=== PATIENT | male | born 1940 | race Caucasian/White ===

== ENCOUNTER 2017-02-01 15:46 | Outpatient (CLI) | payer MEDICARE, BC ==
[2017-02-01 16:20] LABS: Hematocrit 47.7 % (42.0-52.0); Mean Platelet Volume 7.2 fL (7.4-10.4); Red Blood Cell (RBC) Count 4.91 mill/uL (4.70-6.10); White Blood Cell (WBC) Count 26.5 thou/uL (4.8-10.8)
[2017-02-01 16:24] LABS: PTT 26.7 SEC (22.9-36.1); Prothrombin Time 14.2 SEC (12.0-14.7)
[2017-02-01 16:40] LABS: ALT (SGPT) 26 U/L (8-55); AST (SGOT) 16 U/L (5-34); Alkaline Phosphatase 149 U/L (40-150); Anion Gap 11 mmol/L (10-20); BUN (Urea Nitrogen) 15 mg/dL (8.4-25.7); Bilirubin, Total 0.9 mg/dL (0.2-1.2); Calc. Creatinine Clearance 0 mL/min (70-130); Calcium 9.2 mg/dL (7.8-10.44); Carbon Dioxide 28 mmol/L (23-31); Chloride 106 mmol/L (98-107); Estimated GFR-MDRD 55; Globulin 2.1 g/dL (2.4-3.5); Protein, Total 6.3 g/dL (5.8-8.1)
== END 2017-02-01 15:47 | disposition home or self-care (01) ==
LOC: LABBT 15:46
PROVIDERS: ATTEND Internal Medicine Cardiovascular Disease
DX: Z01.818 Encounter for other preprocedural examination (principal); I25.119 Atherosclerotic heart disease of native coronary artery with unspecified angina pectoris
CPT/HCPCS: 80053; 85027; 85610; 85730; 93005; 93010

== ENCOUNTER 2017-02-10 07:07 | Day surgery (SDC) | payer MEDICARE, BC ==
[2017-02-01 16:13] VITALS: BMI 29.4
[2017-02-10] MEDS ORDERED: Heparin 1000 UNIT/NS 500ML(OR) 1,000 ML ONE (07:26)
[2017-02-10] MEDS ORDERED: Fentanyl 100 MCG/2 ML VIAL ONE (07:57)
[2017-02-10] MEDS ORDERED: Midazolam HCl 2 mg/2 ml Vial ONE (08:13)
[2017-02-10] MEDS ORDERED: Heparin 10,000 UNITS/1 ML VIAL ONE (08:32)
[2017-02-10] MEDS ORDERED: Nitroglycerin 100MG/250ML BOT 250 ML ONE (08:32)
[2017-02-10] MEDS ORDERED: Verapamil 5 MG/2 ML VIAL ONE (08:32)
[2017-02-10] MEDS ORDERED: Iopamidol 370 76% 100 ML VIAL ONE (11:15)
== END 2017-02-10 13:20 | disposition home or self-care (01) ==
LOC: CCL 07:07
PROVIDERS: ATTEND Internal Medicine Cardiovascular Disease
DX: I25.119 Atherosclerotic heart disease of native coronary artery with unspecified angina pectoris (principal); E78.5 Hyperlipidemia, unspecified; K21.9 Gastro-esophageal reflux disease without esophagitis; I25.2 Old myocardial infarction; Z88.8 Allergy status to other drugs, medicaments and biological substances; Z90.79 Acquired absence of other genital organ(s); Z85.46 Personal history of malignant neoplasm of prostate
CPT/HCPCS: 93458; 93798; C1769; 99152; J1644; J2250; J3010

== ENCOUNTER 2017-02-15 10:19 | Outpatient (CLI) | payer MEDICARE, BC ==
--- NOTE | 2017-02-15 12:10 | CT ---
CT CHEST WITH CONTRAST: HISTORY: Chest pain. COMPARISON: CT chest dated 07/17/2013. TECHNIQUE: Multiple axial tomograms obtained through the chest with IV enhancement. FINDINGS: The lungs show some hazy ground glass opacity in both lung bases posteriorly with some bibasilar stra nding. These findings appear stable when compared to the CT of 07/17/2013 and represent chronic pare nchymal change. The mid and upper lung quintana are clear. No effusion. No evidence of acute infiltr ate. The mediastinum is unremarkable. No adenopathy or mass seen. The thoracic aorta is unremarkable. I mages through the upper abdomen appear unremarkable. There is a focal area of sclerosis in a lower t horacic vertebra, which is stable from prior exams and is consistent with a benign bone island. IMPRESSION: No evidence of acute process. There are chronic lung parenchymal changes in the lung bases, which we re present on the prior exam of 2013. POS: [facility]
[2017-02-15] MEDS ORDERED: Iopamidol 370 76% 100 ML VIAL ONE (13:52)
== END 2017-02-15 10:20 | disposition home or self-care (01) ==
LOC: CT 10:19
PROVIDERS: ATTEND Internal Medicine Cardiovascular Disease
DX: R07.89 Other chest pain (principal); R91.8 Other nonspecific abnormal finding of lung field
CPT/HCPCS: 71260

== ENCOUNTER 2017-12-28 11:11 | Observation (INO) | payer MEDICARE, BC ==
[2017-12-28] MEDS ORDERED: Nitroglycerin 2% Ointment 1 INCH/1 GM Packet ONE (11:49)
[2017-12-28 12:06] LABS: ALT (SGPT) 23 U/L (8-55); AST (SGOT) 20 U/L (5-34); Albumin 4.3 g/dL (3.4-4.8); Alkaline Phosphatase 148 U/L (40-150); Anion Gap 10 mmol/L (10-20); BUN (Urea Nitrogen) 11 mg/dL (8.4-25.7); Bilirubin, Total 1.2 mg/dL (0.2-1.2); CK (CPK) 166 U/L (30-200); Calc. Creatinine Clearance 0 mL/min (70-130); Calcium 9.3 mg/dL (7.8-10.44); Carbon Dioxide 28 mmol/L (23-31); Chloride 105 mmol/L (98-107); Estimated GFR-MDRD 49; Globulin 2.4 g/dL (2.4-3.5); Glucose 98 mg/dL (83-110); Lipase 13 U/L (8-78); Potassium 4.7 mmol/L (3.5-5.1); Protein, Total 6.7 g/dL (5.8-8.1); Sodium 138 mmol/L (136-145)
[2017-12-28 12:08] LABS: CKMB 1.1 ng/mL (0-6.6); Troponin I Less than 0.010 ng/mL (< 0.028)
[2017-12-28 12:10] LABS: Band 1 % (5-11); Eosinophils 1 % (0-10); Hemoglobin 16.7 g/dL (14.0-18.0); Lymphocytes 72 % (21-51); MDiff Complete? YES; Mean Corpuscular HGB CONC 32.5 g/dL (32.0-36.0); Mean Corpuscular Hemoglobin 30.9 pg (27.0-31.0); Mean Corpuscular Volume 95.2 fL (78.0-98.0); Mean Platelet Volume 7.6 fL (7.4-10.4); Monocytes 3 % (0-10); Neutrophil 18 % (42-75); PLT Morphology Comment Appears Adequate; Platelet Count 160 thou/uL (130-400); RBC Distribution Width 11.8 % (11.5-14.5); RBC Morphology Normal; Reactive Lymphocytes 5 % (0-10); Red Blood Cell (RBC) Count 5.41 mill/uL (4.70-6.10); White Blood Cell (WBC) Count 35.9 thou/uL (4.8-10.8)
--- NOTE | 2017-12-28 13:48 | RAD ---
CHEST ONE VIEW: History: Chest pain Comparison: 05-10-17 FINDINGS: Lungs are mildly hypoinflated. No focal confluent infiltrate. No pneumothorax or effusion. No acute o sseous abnormality. Cardiac silhouette and mediastinal contours are similar. IMPRESSION: No acute intrathoracic abnormality. POS: OFF
[2017-12-28 15:14] LABS: Troponin I Less than 0.010 ng/mL (< 0.028)
[2017-12-28] MEDS ORDERED: Ondansetron ODT 4 MG TAB SL PRN (17:30)
[2017-12-28] MEDS ORDERED: Ondansetron PF 4 MG/2 ML Vial IVP PRN (17:30)
[2017-12-28 18:18] VITALS: BMI 29.9
[2017-12-28 18:48] LABS: Troponin I Less than 0.010 ng/mL (< 0.028)
[2017-12-28] MEDS: Metoprolol Tartrate 25 MG TAB PO SCH (20:58)
[2017-12-28] MEDS: TICAGRELOR 90 MG TABLET PO SCH (20:58)
[2017-12-28] MEDS ORDERED: Atorvastatin Calcium 40 MG TAB PO SCH (21:00)
--- NOTE | 2017-12-29 03:48 | HP ---
DATE OF ADMISSION: 12/28/2017 PRIMARY CARE PHYSICIAN: Dr. Robby Brown. CHIEF COMPLAINT: Chest pain. HISTORY OF PRESENT ILLNESS: This is a 77-year-old male patient of Dr. Robby Brown, who c madiosn to the ER today with complaint of chest pain that he said is difficult to describe, it is subster nal, but radiates towards his left axilla and at times his left hand is numb. He has had the pain of f and on for maybe 5 minutes to, at the most twenty minutes, several times over the last year. Today , he notes that the pain started yesterday and has been more consistent and he has never had the pain last this long. He says the location and the sensation that he gets from this pain is essentially t he same as what he had last year when he ended up getting coronary stents placed. Major difference i s that he has not had any diaphoresis with this episode, although he did have that and had significan t diaphoresis last year. He denies any nausea, any vomiting. Denies any changes in bowel habits. N o cough. PAST MEDICAL HISTORY: Positive for remote history of prostate cancer, remote history of PE. He has coronary artery disease, had a stent placed two different times. He also has CLL. PAST SURGICAL HISTORY: Tonsillectomy, adenoidectomy as a child. He had a cholecystectomy. He has h ad a TURP. He had a prostatectomy in 2012 and bladder reconstruction in 2012. He had coronary stent s placed in 2003 and then he had more stents placed in 2017 after acute coronary syndrome. FAMILY HISTORY: Father had heart disease. 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 He is . No toxic habits. Has several children, one of his grandchildren is here today with him . HOME MEDICATIONS: Include aspirin 325 mg daily, Brilinta 90 mg twice a day, Nexium 40 mg at night, m etoprolol 12.5 mg twice a day and lisinopril 2.5 mg daily, and Lipitor 80 mg daily at night. ALLERGIES: He has no known drug allergies. REVIEW OF SYSTEMS: He denies any headache or visual changes, no troubles chewing or swallowing. Den ies any fever or chills. Denies any cough or hemoptysis. He has had the chest pain, but it is diffi cult to describe as per HPI. Denies any abdominal pain or nausea. No changes in bowel or bladder corral bits. Denies any constipation or diarrhea. Denies any melena or bright red blood per rectum or latasha tochezia. Denies any dysuria, pyuria, or hematuria. Denies any paresis or paresthesias anywhere, bu t his left hand at times. also denies any suicidal or homicidal ideations. No auditory or visual corral llucinations. PHYSICAL EXAMINATION: VITAL SIGNS: Afebrile, 97.6, pulse is 56, respirations 20, satting 95% on room air, BP is 125/67. GENERAL: He is lying in bed comfortable, conversive. Family is in the room, his , one of his da ughters and his granddaughter has a good sense of humor. HEENT: He has got normocephalic, atraumatic cranium. Pupils are equal, round, and reactive to light and accommodation. Extraocular movements are intact. Mucous membranes are moist. Sclerae is anict alejandro. NECK: Supple, no JVD, no bruits, no thyromegaly, no lymphadenopathy. LUNGS: Clear to auscultation bilaterally, no rales, rhonchi or wheezes. HEART: S1, S2, with no rubs, murmurs, or gallops. ABDOMEN: Soft, nontender, nondistended, no palpable masses, no hepatosplenomegaly. Bowel sounds are hypoactive. GENITOURINARY: Exams deferred. EXTREMITIES: Showed good palpable pulses in all four extremities. No cyanosis, clubbing, or edema. NEUROLOGIC: Grossly intact. Cranial nerves II-XII are equal and symmetrical. No sensory or motor d eficits. LABORATORY AND X-RAY FINDINGS: White count is 35,900 which is standard for him. Hemoglobin 16.7, he matocrit 51.5, neutrophils of 18, bands at 1, lymphocytes elevated at 72, that is likely the standard for him. Chemistries: Sodium 138, potassium 4.7, chloride 105, bicarb 28, BUN is 11, creatinine is minimally elevated at 1.4 with estimated GFR of 49. Glucose 98, AST is 20, ALT is 23, lipase of 13. His creatinine kinase is 166. His CK-MB is 1.2. His troponins are undetectable. EKG was unremark able. Chest x-ray was also done in the ER is unremarkable. ASSESSMENT: Chest pain with a known history of coronary artery disease. PLAN: To observe overnight and if everything comes up normal, should be able to go home tomorrow. I have already discussed the case and was signed with Dr. Agarwal, who is his metal stamper and he is aw are, and he agrees with that plan. Dr. Brown will assume care in the morning.
[2017-12-29] MEDS ORDERED: Aspirin 325 mg Enteric Coated Tablet PO SCH (09:00)
[2017-12-29] MEDS: TICAGRELOR 90 MG TABLET PO SCH (09:12)
[2017-12-29] MEDS: Metoprolol Tartrate 25 MG TAB PO SCH (09:12)
[2017-12-29 11:31] VITALS: BP 126/68; TEMP 98.2
--- NOTE | 2018-01-01 09:11 | DIS ---
DATE OF SERVICE: 12/29/2017 SUBJECTIVE: Mr. Talley was admitted yesterday with chest pain to his left upper chest. All cardiac e nzymes studies so far have been normal and negative. He is not experiencing any further chest pain o r shortness of breath. PHYSICAL EXAMINATION: VITAL SIGNS: BP 126/68, temperature 98.2, O2 sats 94% on room air. LUNGS: Clear. HEART: Reveals no murmur. LABORATORY DATA: Hemoglobin 16.7, hematocrit 51.5. Chemistry is completely within normal limits. C hest x-ray is clear. Patient was observed overnight. No further chest pain. He wishes to be discharged home. PLAN: The plan is to discharge him home. He will follow up with me next week. Further followup wit h Cardiology later in the week. DISCHARGE MEDICATIONS: Brilinta 90 mg b.i.d., omeprazole 40 mg at bedtime, Metoprolol 12.5 mg b.i.d. , atorvastatin 80 mg at bedtime, and aspirin 325 mg daily.
== END 2017-12-29 13:02 | disposition home or self-care (01) ==
LOC: ERS 11:11 → ERHOLD 13:55 → 2SW 18:01
PROVIDERS: ADMIT Family Medicine; ATTEND Family Medicine
DX: R07.9 Chest pain, unspecified (principal); R06.02 Shortness of breath; I25.10 Atherosclerotic heart disease of native coronary artery without angina pectoris; Z95.5 Presence of coronary angioplasty implant and graft; Z79.899 Other long term (current) drug therapy
CPT/HCPCS: 71045; 80053; 82550; 82553; 83690; 84484 ×2; 85025; 93005; 99285; G0378 ×2; 36415

== ENCOUNTER 2018-08-20 11:13 | Emergency (ER) | payer BC, MEDICARE, OTHER ==
--- NOTE | 2018-08-20 12:19 | RAD ---
Exam: XR Hip Rt 2-3 View HISTORY: Right hip pain after fall. COMPARISON: None FINDINGS: Minimal osteoarthritis involves the right hip. Degenerative changes are seen in the lower lumbar spin e. No acute fracture, dislocation, or other acute osseous abnormality is identified. Metallic densities overlie the region of the scrotum. IMPRESSION: No acute osseous abnormality is identified.
[2018-08-20 12:29] LABS: Hemoglobin 16.6 g/dL (14.0-18.0); Mean Corpuscular HGB CONC 33.1 g/dL (32.0-36.0); Mean Corpuscular Hemoglobin 31.7 pg (27.0-31.0); Mean Corpuscular Volume 95.7 fL (78.0-98.0); RBC Distribution Width 12.1 % (11.5-14.5); Red Blood Cell (RBC) Count 5.22 mill/uL (4.70-6.10); White Blood Cell (WBC) Count 53.8 thou/uL (4.8-10.8)
[2018-08-20 12:37] LABS: ALT (SGPT) 28 U/L (8-55); AST (SGOT) 16 U/L (5-34); Alkaline Phosphatase 126 U/L (40-150); Anion Gap 11 mmol/L (10-20); BUN (Urea Nitrogen) 15 mg/dL (8.4-25.7); Bilirubin, Total 1.2 mg/dL (0.2-1.2); Calc. Creatinine Clearance 0 mL/min (70-130); Calcium 8.9 mg/dL (7.8-10.44); Carbon Dioxide 24 mmol/L (23-31); Chloride 105 mmol/L (98-107); Estimated GFR-MDRD 69; Globulin 2.1 g/dL (2.4-3.5); Glucose 92 mg/dL (83-110); Potassium 4.1 mmol/L (3.5-5.1); Protein, Total 6.1 g/dL (5.8-8.1); Sodium 136 mmol/L (136-145)
[2018-08-20 12:49] LABS: Band 1 % (5-11); Lymphocytes 50 % (21-51); MDiff Complete? YES; Mean Platelet Volume 9.5 fL (7.4-10.4); Monocytes 5 % (0-10); Neutrophil 14 % (42-75); Ovalocytes SLIGHT = 2-5 cells (100X) (0-1/hpf); Platelet Count 80 thou/uL (130-400); Platelet Morphology Comment Appears Decreased; Polychromasia SLIGHT = 2-3 cells (100X) (0-2/hpf); Reactive Lymphocytes 30 % (0-10); Reflex for Review?? YES
--- NOTE | 2018-08-20 13:25 | RAD ---
RIGHT SHOULDER: 08/20/18 Three views. HISTORY: Shoulder injury and pain. Both AP views are obtained in internal rotation. Density is seen from the humeral head at the glenohumeral joint. Some of this may represent hypertrop hic change; however, fracture cannot be excluded on this exam that does not include external rotation . There is no dislocation. AC joint normally aligned. IMPRESSION: Possible hypertrophic change from the humerus at the glenohumeral joint; however, I cannot exclude fr acture. Externally rotated view is not obtained. Consider further evaluation with CT. POS: OFF
--- NOTE | 2018-08-20 13:27 | CT ---
CT CERVICAL SPINE WITH CORONAL AND SAGITTAL REFORMATIONS AND NO IV CONTRAST: HISTORY: Fall, neck pain FINDINGS: Multilevel degenerative changes are present. No fracture, subluxation or facet malalignment is identified. There is an old fracture of the spinous process of T1. No prevertebral soft tissue swelling is apparent. The visualized lung apices are unremarkable. IMPRESSION: No CT evidence for fracture or traumatic subluxation.
[2018-08-20] MEDS ORDERED: Morphine 4 MG/ML VIAL ONE (13:36)
--- NOTE | 2018-08-20 13:45 | CT ---
CT BRAIN NONCONTRAST: 08/20/18 HISTORY: 78-year-old male status post acute head trauma from fall, and posttraumatic headache. FINDINGS: There is no midline shift or any other mass effect. There is no evidence of acute intracranial hemor rhage, large cortical infarct, obstructive hydrocephalus, or extraaxial fluid collection. The calvar ium is intact. IMPRESSION: No acute intracranial findings. jn [] POS: [facility]
--- NOTE | 2018-08-20 13:47 | CT ---
CT CHEST WITH IV CONTRAST CT ABDOMEN WITH IV CONTRAST CT PELVIS WITH IV CONTRAST CORONAL AND SAGITTAL REFORMATTED FORMATIONS OF THE THORACIC LUMBAR SPINE: HISTORY: Injury, fall, chest pain, abdominal pain, back pain FINDINGS: No mediastinal hematoma or intimal flap is seen in the aorta to suggest transection. No pleural or pe ricardial effusions are seen. No pneumothoraces or pulmonary contusions are identified. There is a 6 mm nodule in the posterior aspect of the right upper lobe. Dependent changes are seen in the lung b ases. The liver, spleen, pancreas, adrenal glands and kidneys appear intact. The patient is post cholecyste ctomy. An indeterminate 18 mm left adrenal nodule is present. There are cysts in the left kidney. No free air or free fluid is seen in the abdomen or pelvis. No fracture or subluxation is seen in the thoracolumbar spine. There are small sclerotic foci likely bone islands involving the T9 and L5 vertebral bodies and the left posterior acetabular column. Heterogeneous sclerotic change is seen in the right iliac bone. A penile prostheses is seen with its pump in the right anterior pelvis. IMPRESSION: 1. No CT evidence of acute intrathoracic or solid organ injury. 2. Indeterminate left adrenal nodule. Dedicated CT scan of the abdomen with and without IV contrast s hould be performed using the adrenal protocol. 3. A 6 mm right lung nodule should be followed up with CT scan in 12 months. 4. Bony findings should be evaluated with bone scan.
--- NOTE | 2018-08-25 17:06 | EKG ---
Test Reason : ER INDICATION Blood Pressure : / mmHG Vent. Rate : 053 BPM Atrial Rate : 053 BPM P-R Int : 128 ms QRS Dur : 086 ms QT Int : 416 ms P-R-T Axes : 025 -14 021 degrees QTc Int : 390 ms Sinus bradycardia Minimal voltage criteria for LVH, may be normal variant Cannot rule out Anterior infarct , age undetermined Abnormal ECG No change from 12/18/2017 Confirmed by SANGEETHA STATON DO ([id number]), market editor GUILLERMO COYNE ([id number]) on 08/25/2018 5:05:49 PM Referred By: Confirmed By:SANGEETHA STATON DO
== END 2018-08-20 15:10 | disposition home or self-care (01) ==
LOC: ERS 11:13
DX: S42.301A Unspecified fracture of shaft of humerus, right arm, initial encounter for closed fracture (principal); E27.9 Disorder of adrenal gland, unspecified; R91.1 Solitary pulmonary nodule; E78.5 Hyperlipidemia, unspecified; I25.10 Atherosclerotic heart disease of native coronary artery without angina pectoris; K21.9 Gastro-esophageal reflux disease without esophagitis; I25.2 Old myocardial infarction; Z79.899 Other long term (current) drug therapy; Z79.82 Long term (current) use of aspirin; W19.XXXA Unspecified fall, initial encounter
CPT/HCPCS: 70450; 71260; 72125; 74177; 80053; 84484; 85025; 85060; 93005; J2270

== ENCOUNTER 2019-02-07 14:06 | Outpatient (CLI) | payer MEDICARE, BC ==
--- NOTE | 2019-02-07 14:50 | ULT ---
EXAM: Bilateral lower extremity venous Doppler US HISTORY: bilateral lower extremity pain FINDINGS: Grayscale, color-flow, Doppler evaluation, spectral analysis of the bilateral lower extremities venou s structures is performed with 2-D imaging. The bilateral common femoral, superficial femoral, popliteal, posterior tibial, proximal greater saphenous and profunda femoral veins are imaged. There is normal luminal compressibility, flow, and augmentation in the visualized deep venous structu res of the bilateral lower extremities. IMPRESSION: No evidence of a deep vein thrombosis in either lower extremity.
== END 2019-02-07 14:07 | disposition home or self-care (01) ==
LOC: BICULT 14:06
PROVIDERS: ATTEND Family Medicine
DX: M79.604 Pain in right leg (principal); M79.605 Pain in left leg
CPT/HCPCS: 93970

== ENCOUNTER 2019-10-25 05:41 | Day surgery (SDC) | payer MEDICARE, BC, OTHER ==
[2019-10-22 13:17] VITALS: BMI 28.7
--- NOTE | 2019-10-24 13:33 | HP ---
HISTORY OF PRESENT ILLNESS: Mr. Talley is a very pleasant 79-year-old man, who presents today for roughly 9-month worth of severe bilateral lower extremity L4 patterns of pain that mostly remains proximal to his knees but when severe, radiates down to his feet. He had to resort using a cane secondary to this. He has seen several physicians including Pain Management who gave him epidural steroid injections with only limited relief for brief periods of time. He brings an MRI from [facility], which shows mild to moderate lateral recess stenosis at L3-[address] scan from [place] that reveals also some bilateral L4 stenosis in the foramina. PHYSICAL EXAMINATION: The patient is alert and oriented x3. Gait is severely antalgic and slowed depending upon cane. Cranial nerve function is normal. His strength in his bilateral lower extremities is actually quite good in all movements. He has recently seen Dr. Haney for evaluation with NCV, which he states is unremarkable. He is desperate to treat this potentially with surgery if at all possible. PAST MEDICAL HISTORY: Hypercholesterolemia, chronic pain syndrome, osteoarthritis, seasonal allergies, prostate cancer, hypertension, coronary artery disease, and kidney disease. SURGICAL HISTORY: Tonsillectomy, cholecystectomy, cardiac stents, prostatectomy, AICD placement. CURRENT MEDICATIONS: 1. Omeprazole. 2. Aspirin. 3. Metoprolol. 4. Atorvastatin. 5. Brilinta. ALLERGIES: NO KNOWN DRUG ALLERGIES. ASSESSMENT: Lumbar spinal stenosis, radiculopathy. PLAN: Dr. Barnhart met with the patient, reviewed imaging, advocated for bilateral L4 foraminotomy. He explained to the patient the risks, benefits, and alternatives to the procedure. The patient expressed understanding and elected to move forward with surgery as discussed. I do believe that the patient is mentally competent and capable of making medical decisions for himself. We will move forward with surgery as planned. Job ID: [id number]
[2019-10-25] MEDS ORDERED: Bupivacaine PF 0.5% 30 ML VIAL ONE (06:39)
[2019-10-25] MEDS ORDERED: Thrombin 5000 UNITS/5 ML VIAL ONE (06:39)
[2019-10-25] MEDS ORDERED: EPINEPHrine 1 MG/ML AMP ONE (06:39)
[2019-10-25] MEDS ORDERED: Fentanyl 100 MCG/2 ML VIAL ONE ×4 (06:58→09:52)
--- NOTE | 2019-10-25 08:58 | OP ---
DATE OF PROCEDURE: 10/25/2019 COLLECTIONS REPRESENTATIVE: Helder Pineda PA-C INDICATION: Pain. DIAGNOSIS: Bilateral L4 radiculopathies. PROCEDURES PERFORMED: Bilateral L4 foraminotomies, medial facetectomies. ANESTHESIA: General. DESCRIPTION OF PROCEDURE: The patient was brought into the operating room and placed under general anesthesia. He was flipped from the supine to prone position on the operating room table. A linear incision was planned at the L4 segment. After prepping and draping and after an appropriate preoperative pause, the incision was created. The soft tissues were swept away from midline. Self-retaining retractors were placed in the wound for optimal exposure. After confirming the appropriate level with C-arm fluoroscopy, high-speed cutting drill bit as well as 2, 3, and 4 mm Kerrisons were used to perform partial hemilaminectomies along the inferior aspect of L4 bilaterally. The laminectomies were extended laterally to encompass the medial aspect of the facet joint in order to expose the L4 foramen. Portions of the superior articulating facet of L5 were removed bilaterally, which were responsible for the bulk of the patient's foraminal stenosis. After completing the decompression, the wound was irrigated. Hemostasis was maintained throughout. The wound was then closed in anatomic layers, and a pressure dressing was applied. There were no known procedural complications. Job ID: [id number]
[2019-10-25] MEDS ORDERED: Tamsulosin HCl 0.4 MG CAP ONE (09:03)
[2019-10-25] MEDS ORDERED: Dexamethasone 20 MG/5 ML VIAL ONE (09:13)
[2019-10-25] MEDS ORDERED: Rocuronium Bromide 10 MG/ML (10ML VIAL) ONE (09:13)
[2019-10-25] MEDS ORDERED: Lidocaine 1% PF 5 ML VIAL ONE (09:13)
[2019-10-25] MEDS ORDERED: EPHEDRINE 25 MG/5 ML SYRINGE ONE (09:13)
[2019-10-25] MEDS ORDERED: Ondansetron PF 4 MG/2 ML Vial ONE (09:13)
[2019-10-25] MEDS ORDERED: Glycopyrrolate 0.2 MG/ML 5 ML SYRINGE ONE (09:13)
[2019-10-25] MEDS ORDERED: PROPOFOL 200 MG/20 ML VIAL ONE (09:13)
[2019-10-25 11:23] LABS: Anion Gap 12 mmol/L (10-20); BUN (Urea Nitrogen) 15 mg/dL (8.4-25.7); Calc. Creatinine Clearance 70 mL/min (70-130); Calcium 8.4 mg/dL (7.8-10.44); Carbon Dioxide 25 mmol/L (23-31); Chloride 106 mmol/L (98-107); Estimated GFR-MDRD 62; Glucose 116 mg/dL (83-110); Potassium 4.2 mmol/L (3.5-5.1); Sodium 139 mmol/L (136-145)
[2019-10-25 11:28] LABS: Hemoglobin 14.4 g/dL (14.0-18.0); Mean Corpuscular HGB CONC 32.7 g/dL (32.0-36.0); Mean Corpuscular Hemoglobin 32.1 pg (27.0-31.0); Mean Corpuscular Volume 98.1 fL (78.0-98.0); Mean Platelet Volume 9.4 fL (7.4-10.4); Platelet Count 66 thou/uL (130-400); RBC Distribution Width 11.6 % (11.5-14.5); Red Blood Cell (RBC) Count 4.47 mill/uL (4.70-6.10); White Blood Cell (WBC) Count 51.3 thou/uL (4.8-10.8)
[2019-10-25 11:30] LABS: Lymphocytes 83 % (21-51); MDiff Complete? YES; Monocytes 2 % (0-10); Neutrophil 15 % (42-75); Platelet Morphology Comment Appears Decreased; RBC Morphology Normal; Reflex for Review?? NO
--- NOTE | 2019-10-25 16:45 | EKG ---
Test Reason : PREOP Blood Pressure : / mmHG Vent. Rate : 056 BPM Atrial Rate : 056 BPM P-R Int : 148 ms QRS Dur : 088 ms QT Int : 426 ms P-R-T Axes : 068 023 047 degrees QTc Int : 411 ms Sinus bradycardia Otherwise normal ECG No previous ECGs available Confirmed by DR. Dimas LARIOS ([id number]) on 10/25/2019 4:45:17 PM Referred By: FLYNN Confirmed By:DR. Dimas LARIOS
== END 2019-10-25 11:40 | disposition home or self-care (01) ==
LOC: SDC 05:41
PROVIDERS: ATTEND Neurological Surgery
PROC: 01NB0ZZ Release Lumbar Nerve, Open Approach (ICD-10-PCS; principal; 2019-10-25)
DX: M48.061 Spinal stenosis, lumbar region without neurogenic claudication (principal); M54.16 Radiculopathy, lumbar region; E78.00 Pure hypercholesterolemia, unspecified; G89.4 Chronic pain syndrome; M19.90 Unspecified osteoarthritis, unspecified site; I25.10 Atherosclerotic heart disease of native coronary artery without angina pectoris; I10 Essential (primary) hypertension; Z79.82 Long term (current) use of aspirin; Z79.899 Other long term (current) drug therapy; Z88.5 Allergy status to narcotic agent; Z95.5 Presence of coronary angioplasty implant and graft; Z95.810 Presence of automatic (implantable) cardiac defibrillator
CPT/HCPCS: 36415; 76000; 80048; 85025; 93005; 93010; J0171; J0690; J1100; J2405; J2704; J3010; S0020

== ENCOUNTER 2019-12-17 11:06 | Outpatient (CLI) | payer MEDICARE, BC, OTHER ==
--- NOTE | 2019-12-17 13:12 | RAD ---
RIGHT HIP 2 VIEWS: Date: 12/17/2019 HISTORY: Hip pain. COMPARISON: 08/20/2018. FINDINGS: Mild degenerative change at the right hip. Joint narrowing and minimal spurring. No fracture or acute abnormality. Evidence of subchondral cystic changes along the superior aspects of the femoral head which is more p ronounced than on the prior study. No fracture or acute abnormality. IMPRESSION: Degenerative changes right hip as described. POS: ONES[facility]
== END 2019-12-17 11:07 | disposition home or self-care (01) ==
LOC: TBSIIMAG 11:06
PROVIDERS: ATTEND Neurological Surgery
DX: M25.551 Pain in right hip (principal); M16.11 Unilateral primary osteoarthritis, right hip

== ENCOUNTER 2020-03-11 04:03 | Observation (INO) | payer MEDICARE, BC, OTHER ==
[2020-03-11 05:02] LABS: ALT (SGPT) 15 U/L (8-55); AST (SGOT) 16 U/L (5-34); Albumin 4.3 g/dL (3.4-4.8); Alkaline Phosphatase 172 U/L (40-110); Anion Gap 13 mmol/L (10-20); BUN (Urea Nitrogen) 16 mg/dL (8.4-25.7); Bilirubin, Total 0.7 mg/dL (0.2-1.2); Calc. Creatinine Clearance 0 mL/min (70-130); Calcium 9.1 mg/dL (7.8-10.44); Carbon Dioxide 28 mmol/L (23-31); Chloride 106 mmol/L (98-107); Globulin 2.4 g/dL (2.4-3.5); Glucose 100 mg/dL (83-110); Potassium 4.4 mmol/L (3.5-5.1); Protein, Total 6.7 g/dL (5.8-8.1); Sodium 143 mmol/L (136-145)
[2020-03-11] MEDS ORDERED: Ketorolac Tromethamine 30 MG/ML VIAL ONE (05:06)
[2020-03-11 05:34] LABS: Mean Corpuscular HGB CONC 32.1 g/dL (32.0-36.0); Mean Corpuscular Hemoglobin 31.2 pg (27.0-31.0); Mean Corpuscular Volume 97.1 fL (78.0-98.0); Mean Platelet Volume 9.6 fL (7.4-10.4); Platelet Count 77 thou/uL (130-400); RBC Distribution Width 12.1 % (11.5-14.5); Red Blood Cell (RBC) Count 4.82 mill/uL (4.70-6.10); Reflex for Review?? YES; White Blood Cell (WBC) Count 85.2 thou/uL (4.8-10.8)
[2020-03-11 05:35] LABS: Band 3 % (5-11); Lymphocytes 18 % (21-51); MDiff Complete? YES; Monocytes 1 % (0-10); Neutrophil 10 % (42-75); Platelet Morphology Comment Appears Decreased; Reactive Lymphocytes 68 % (0-10)
[2020-03-11] MEDS ORDERED: Enoxaparin Sodium 30 MG/0.3 ML SYRINGE ONE (05:45)
[2020-03-11] MEDS ORDERED: Enoxaparin Sodium 60 MG/0.6 ML SYRINGE ONE (05:45)
--- NOTE | 2020-03-11 06:46 | PDOC.HHP ---
Hospitalist HPI - History of Present Illness Chest pain History of Present Illness: This is 79-year-old male patient with a history of [place] status post stent, PE, hyperlipidemia and CLL who presents with sudden onset chest pain about 2 hours prior to arrival to the ED. He was lying down in bed when he noted a sudden onset of chest pain felt bilateral but mainly in his left side. This was sharp yesterday nonradiating and worse with inspiration. Given that his had a previous [place] he thought he had an MIleading him to come to the ED for further evaluation. He denied any associated cough palpitations shortness of breath or recent leg pain. Of note he had surgery on his back about 2 months ago and has also had a pulmonary embolism after one of his surgeries many years ago. At presentation Vitals shows blood pressure of 127/65, pulse 64, respirate 15, oxygen saturation 96 on room air. His labs showed WBC of 35.2, platelets 77, hemoglobin 15.0, creatinine was 1.39 from a baseline of 1.14 about 4 months ago. Alkaline phosphatase was 172. Troponin was 0.01. CTA demonstrated mild patchy airspace disease or atelectasis within both upper lobes and lingula and also had positive pulmonary embolism bilaterally in his lower lobes. He was started on ketorolac and Lovenox. Hospitalist team consulted for admission. Hospitalist ROS - Review of Systems Constitutional: denies: fever, sweats, weakness, malaise Respiratory: denies: cough, shortness of breath, hemoptysis, SOB with excertion Cardiovascular: reports: chest pain. denies: palpitations, orthopnea, paroxysmal noc. dyspnea Gastrointestinal: reports: nausea. denies: vomiting, abdominal pain, diarrhea Genitourinary: denies: dysuria, frequency, incontinence, hematuria Neurological: denies: weakness, numbness, incoordination, change in speech All other systems reviewed; all pertinent +/- noted in HPI/Subj - Medication Medications: Medications: Can refer to ambulatory list. Allergies: Hydromorphone Hospitalist History - Past Medical History Other Medical History: CLL, [place], PE - Past Surgical History Other Surgical History: TURP, cholecystectomy, tonsillectomy - Family History Family History: reports: no pertinent history - Social History Smoking Status: Never smoker Drugs: reports: none Living Situation: With Family - Exam General Appearance: awake alert Eye: PERRL, anicteric sclera ENT: normocephalic atraumatic, no oropharyngeal lesions Neck: supple, symmetric, no JVD, no thyromegaly Heart: RRR, no murmur, no gallops, no rubs Respiratory: CTAB, no wheezes, no rales, no ronchi Gastrointestinal: soft, non-tender, non-distended, normal bowel sounds Extremities: no cyanosis, no clubbing, no edema Neurological: cranial nerve grossly intact, normal sensation to touch, no weakness Psychiatric: normal affect, normal behavior, A&O x 3 Hospitalist Results - Labs Result Diagrams: 03/11/20 04:16 03/11/20 04:16 Lab results: WBC 85.2 thou/uL (4.8-10.8) H* 03/11/20 04:16 Hgb 15.0 g/dL (14.0-18.0) 03/11/20 04:16 Hct 46.8 % (42.0-52.0) 03/11/20 04:16 MCV 97.1 fL (78.0-98.0) 03/11/20 04:16 Plt Count 77 thou/uL (130-400) L 03/11/20 04:16 Band Neuts % (Manual) 3 % (5-11) L 03/11/20 04:16 Sodium 143 mmol/L (136-145) 03/11/20 04:16 Potassium 4.4 mmol/L (3.5-5.1) 03/11/20 04:16 Chloride 106 mmol/L (98-107) 03/11/20 04:16 Carbon Dioxide 28 mmol/L (23-31) 03/11/20 04:16 BUN 16 mg/dL (8.4-25.7) 03/11/20 04:16 Creatinine 1.39 mg/dL (0.7-1.3) H 03/11/20 04:16 Glucose 100 mg/dL (83-110) 03/11/20 04:16 Calcium 9.1 mg/dL (7.8-10.44) 03/11/20 04:16 Total Bilirubin 0.7 mg/dL (0.2-1.2) 03/11/20 04:16 AST 16 U/L (5-34) 03/11/20 04:16 ALT 15 U/L (8-55) 03/11/20 04:16 Alkaline Phosphatase 172 U/L (40-110) H 03/11/20 04:16 Troponin I Less than 0.010 ng/mL (< 0.028) 03/11/20 04:16 Serum Total Protein 6.7 g/dL (5.8-8.1) 03/11/20 04:16 Albumin 4.3 g/dL (3.4-4.8) 03/11/20 04:16 Hospitalist H&P A/P - Plan Plan: This is a 79-year-old male patient with a history of [place], PE and CLL who presents with chest pain secondary to bilateral pulmonary embolism. Bilateral PE Risk factors including CLL, recent surgery, to rule out Covid. Started on Lovenoxwe will continue We will order echocardiogram to assess change in heart. Monitor on telemetry. Bilateral pulmonary infiltrates Patient is asymptomatic is unclear whether he has a pneumonia. Also concerns for Covidtest pending. We will monitor. CLL WBC at 85 Baseline typically in the 30s and 40s. To consider heme-onc consult later next Thrombocytopenia Platelets 77, from 66 4 months agopossibly related to CLL Unclear etiology of this. Given his low platelets we will have to monitor heparin use Consider changing to direct oral anticoagulants before discharge. VT prophylaxistherapeutic on Lovenox CODE STATUSto be determined
[2020-03-11 07:26] LABS: SARS-CoV-2 NAA Rapid Test Not Detected (NotDetected)
--- NOTE | 2020-03-11 08:22 | RAD ---
RADIOGRAPH CHEST 1 VIEW: DATE: 03/11/2020 HISTORY: 79-year-old male with chest pain FINDINGS: Limited study because of shallow inspiration. Minimal reticular nonspecific densities at left base. T here is no consolidation, pulmonary edema, or pneumothorax. The lateral costophrenic angles are not effaced. IMPRESSION: No consolidation
--- NOTE | 2020-03-11 08:28 | CT ---
PRELIMINARY REPORT/[facility]/EMERGENCY AFTER HOURS PROCEDURE: Receipt of this report by the clinical staff was confirmed with Eber Crews DO by Bethany Crook on Mar 11, 2020 05:38:00 [employer] DIST[employer]ION AND EMERGENCY CLERK. Addendum electronically signed by Kayley Crook on March 11, 2020 5:38:39 AM [employer] DIST[employer]ION AND EMERGENCY CLERK EXAM: CTA Chest with Intravenous Contrast CLINICAL HISTORY: 79-year-old male with past medical history of [place], PE, hyperlipidemia CLL presenting for chest pain that started 2 hours prior to arrival. Patient states that it is a sharp pain in the middle of his chest worse with inspiration. Patient states that he became diaphoretic and nauseou s and the pain slowly got worse over the next hour. TECHNIQUE: Axial CTA images of the chest with intravenous contrast. Three-dimensional MIP/volume rend ered reformations were performed. CONTRAST: With; 70ML ISOVUE 370 COMPARISON: None provided. FINDINGS: PULMONARY ARTERIES There is a pulmonary embolus within the left lower lobe segmental pulmonary artery extending to the subsegmental branches. Pulmonary emboli are also visualized within the right lower lobe subsegmental pulmonary arteries. AORTA There is mild aortic atherosclerosis, without aneurysmal dilatation. LUNGS There is mild patchy airspace disease or atelectasis within both lower lobes and lingula. PLEURAL SPACES There is no evidence of effusions or pneumothoraces. HEART AND MEDIASTINUM The main coronary artery is unremarkable. There is calcified coronary atheroscl erosis. LYMPH NODES No lymphadenopathy. BONES No focal osseous abnormality or acute fracture. CHEST WALL AND UPPER ABDOMEN Images through the upper abdomen are unremarkable. The chest wall is unr emarkable. IMPRESSION: 1. Positive for pulmonary embolism with pulmonary emboli within bilateral lower lobes. 2. Mild patchy airspace disease/atelectasis within both lower lobes and lingula. ELECTRONICALLY SIGNED BY: Josh Duckworth MD Mar 11, 2020 5:36:04 AM [employer] DIST[employer]ION AND EMERGENCY CLERK FINAL REPORT EMERGENT AFTER HOURS CT ANGIOGRAM THORAX WITH IV CONTRAST AND 3D RECONSTRUCTIONS: HISTORY: Chest pain. COMPARISON: 07/17/[address] thorax on 08/20/2018 IMPRESSION: 1. Pulmonary emboli involving bilateral lower lobe pulmonary arteries as well as left upper lobe pulm onary arteries. 2. Atherosclerotic vascular calcifications and plaque in the thoracic aorta. The thoracic aorta is no rmal in caliber without evidence of an aortic dissection. 3. Dense vascular calcifications are again seen in the coronary arteries. 4. Linear and patchy parenchymal densities within the lungs bilaterally felt to most likely be attrib utable to atelectasis. 5. No other interval change compared to prior studies. 6. Findings are in agreement with preliminary report by [facility]. Transcribed Date/Time: 03/11/2020 8:38 AM
--- NOTE | 2020-03-11 11:57 | PDOC.HOSPP ---
- Subjective Encounter Date: 03/11/20 Subjective: reports being sob with movement. - Objective Result Diagrams: 03/11/20 04:16 03/11/20 04:16 - Exam General Appearance: awake alert Eye: PERRL, anicteric sclera ENT: normocephalic atraumatic Neck: supple, symmetric Heart: RRR, no murmur Respiratory: CTAB, no wheezes Gastrointestinal: soft, non-tender, non-distended Extremities: no cyanosis, no clubbing Skin: normal turgor Hosp A/P (1) Pulmonary emboli Code(s): I26.99 - OTHER PULMONARY EMBOLISM WITHOUT ACUTE COR PULMONALE Status: Acute (2) CLL (chronic lymphocytic leukemia) Code(s): C91.10 - CHRONIC LYMPHOCYTIC LEUK OF B-CELL TYPE NOT ACHIEVE REMIS Status: Acute (3) Hypertension Code(s): I10 - ESSENTIAL (PRIMARY) HYPERTENSION Status: Acute (4) Thrombocytopenia Code(s): D69.6 - THROMBOCYTOPENIA, UNSPECIFIED Status: Acute - Plan This is a 79-year-old male patient with a history of [place], PE and CLL who presents with chest pain secondary to bilateral pulmonary embolism. Bilateral PE Risk factors including CLL, recent surgery, Covid ruled out. on Lovenoxwe will continue follow up echocardiogram to assess change in heart. Monitor on telemetry. will do venous doppler of bilateral LE. Bilateral pulmonary infiltrates Patient is asymptomatic is unclear whether he has a pneumonia. Covidtest negative We will monitor. CLL WBC at 85 Baseline typically in the 30s and 40s. heme-onc consulted for further input concerning anticoagulation. Thrombocytopenia Platelets 77, from 66 4 months agopossibly related to CLL Unclear etiology of this. Given his low platelets we will have to monitor heparin use Consider changing to direct oral anticoagulants before discharge. VT prophylaxistherapeutic on Lovenox CODE STATUSto be determined
[2020-03-11] MEDS ORDERED: Iopamidol-370 76% 500 ML 1 ML ONE (13:05)
--- NOTE | 2020-03-11 13:25 | ULT ---
BILATERAL LOWER EXTREMITY VENOUS DOPPLER ULTRASOUND: Date: 03/11/2020 HISTORY: Pulmonary embolism. TECHNIQUE: Lopez scale ultrasound with color flow and spectral Doppler imaging of the deep venous systems of the lower extremities was performed bilaterally. FINDINGS: There is absence of flow and compressibility due to intraluminal thrombus involving both the right an d left mid posterior tibial veins. The remainder of the deep veins of the lower extremities are other kuhn patent and compressible. IMPRESSION: Bilateral posterior tibial vein thrombosis. POS: AH
[2020-03-11 15:58] VITALS: BMI 29.3
--- NOTE | 2020-03-11 17:08 | CON ---
DATE OF CONSULTATION: REASON FOR CONSULTATION: CLL. HISTORY OF PRESENT ILLNESS: Mr. Talley is a pleasant 79-year-old gentleman with Kramer stage 0 CLL, who is being followed by Dr. Corona. He had surgery approximately 2 months ago and began having intermittent twinges (twinges in his chest) over the last several weeks. Early this morning, he began to have unrelenting chest pain and presented to the emergency room for evaluation. He underwent a chest and thorax CT angio, which showed bilateral pulmonary embolism. He then had a venogram, which showed bilateral DVTs in the posterior tibial veins. He was started on therapeutic Lovenox and admitted for anticoagulation. On CBC this morning, his white count was 85,000 and his platelet counts were 77,000. He was diagnosed with CLL in 2019. His white count has progressed over the last year. At diagnosis, it was 38,700, when last seen by Dr. Corona, it was 84,500. His platelets have slowly began to drop as well. In February when he was last seen, it was 92,000. He has required no treatment as he has had no symptoms. He is currently resting comfortably with no complaints. PAST MEDICAL HISTORY: 1. CLL. 2. Myocardial infarction. 3. Coronary artery disease. 4. Hyperlipidemia. 5. Arthritis. 6. History of prostate cancer status post robotic prostatectomy in 2014. 7. GERD. 8. History of pulmonary emboli after prior surgery. PAST SURGICAL HISTORY: 1. Coronary stents. 2. Cholecystectomy. 3. TURP. 4. Cystoscopy. 5. Prostatectomy. 6. Bladder reconstruction. 7. Hernia repair. 8. Urinary sphincter implantation. 9. Back surgery. ALLERGIES: TO HYDROMORPHONE. HOME MEDICATIONS: 1. Aspirin. 2. Atorvastatin. 3. Metoprolol. 4. Prilosec. FAMILY HISTORY: Father had prostate cancer. SOCIAL HISTORY: , has 2 children. No alcohol, tobacco, or illicit drug use. REVIEW OF SYSTEMS: Positive for occasional chest discomfort with respirations and chronic back pain. Otherwise negative. PHYSICAL EXAMINATION: VITAL SIGNS: Temperature is 97.7, pulse is 65, respiratory rate 16, BP is 136/66, and he is 95% on room air. GENERAL: This is a well-developed, well-nourished male, in no acute distress. HEENT: Normocephalic and atraumatic. Pupils equal and reactive to light. NECK: Supple. CV: Regular rate and rhythm. LUNGS: Clear. ABDOMEN: Soft. EXTREMITIES: There is no clubbing or cyanosis. NEUROLOGIC: Nonfocal. PERTINENT LABORATORY DATA AND X-RAYS: WBCs are 85,200, hemoglobin 15, hematocrit 46.8, and platelet count 77,000. He has 10% neutrophils, 3% bands, 18% lymphocytes, and 68% reactive lymphocytes. Sodium 143, potassium 4.4, chloride 106, CO2 is 28, BUN is 16, creatinine went to 1.39, glucose 100, and calcium 9.1. Bilirubin 0.7, AST 16, ALT is 15, alkaline phosphatase is 172. Troponin negative. Serum total protein 6.7, albumin 4.3, and globulin 2.4. COVID PCR is negative. Radiology per HPI. ASSESSMENT: 1. Bilateral deep vein thrombosis with pulmonary embolism. 2. CLL. 3. History of pulmonary embolism. DISCUSSION: The patient has been started on therapeutic Lovenox and can be transitioned to oral anticoagulation. We tend to prefer Eliquis as we can adjust if he has any bleeding issues. His CBC is at baseline. Plan to have him follow up in the outpatient setting in the next couple of weeks to recheck his CBC. No inpatient recommendations. Thank you for the consult. Job ID: [id number]
[2020-03-11] MEDS ORDERED: Ketorolac Tromethamine 30 MG/ML VIAL IVP PRN (20:35)
[2020-03-11] MEDS ORDERED: Atorvastatin Calcium 40 MG TAB PO SCH (21:00)
[2020-03-11] MEDS ORDERED: Sodium Chloride 0.9% 10 ML ONE (21:05)
[2020-03-11] MEDS: Metoprolol Tartrate 25 MG TAB PO SCH (21:16)
[2020-03-11] MEDS: Enoxaparin Sodium 100 MG/ML SYRINGE SC SCH (21:17)
[2020-03-12 04:49] LABS: White Blood Cell (WBC) Count 86.6 thou/uL (4.8-10.8)
[2020-03-12 04:54] LABS: Anion Gap 13 mmol/L (10-20); BUN (Urea Nitrogen) 18 mg/dL (8.4-25.7); Calc. Creatinine Clearance 57 mL/min (70-130); Calcium 8.5 mg/dL (7.8-10.44); Carbon Dioxide 27 mmol/L (23-31); Chloride 106 mmol/L (98-107); Glucose 89 mg/dL (83-110); Sodium 142 mmol/L (136-145)
[2020-03-12 05:32] LABS: Hemoglobin 14.4 g/dL (14.0-18.0); Lymphocytes 92 % (21-51); MDiff Complete? YES; Mean Corpuscular HGB CONC 32.3 g/dL (32.0-36.0); Mean Corpuscular Hemoglobin 31.5 pg (27.0-31.0); Mean Corpuscular Volume 97.4 fL (78.0-98.0); Mean Platelet Volume 9.4 fL (7.4-10.4); Monocytes 3 % (0-10); Neutrophil 5 % (42-75); Platelet Count 73 thou/uL (130-400); Platelet Morphology Comment Appears Decreased; RBC Distribution Width 11.9 % (11.5-14.5); Red Blood Cell (RBC) Count 4.59 mill/uL (4.70-6.10)
[2020-03-12] MEDS: Enoxaparin Sodium 100 MG/ML SYRINGE SC SCH (07:48)
[2020-03-12] MEDS: Metoprolol Tartrate 25 MG TAB PO SCH (07:48)
[2020-03-12 07:51] VITALS: BP 138/78; TEMP 98.7
--- NOTE | 2020-03-12 08:28 | PDOC.DS.DS ---
Provider - Provider Date of Admission: 03/11/20 06:59 Date of Discharge: 03/12/20 Admitting Provider: Connor Harris MD Consultations: Oncology Primary Care Physician: Robby Brown MD Course - Hospital Course Hospital Course: He has twinges in chest since 2 weeks, and on the day of the admission he had chest pain, a CTA of chest showed bilateral PE. He was started on Lovenox BID, a doppler of LE showed bilateral DVT. During his stay He did well and today feels great and eager to go home. He has a history of CLL, and his platelets have been trending down, he was seen by Hematology and they will follow-up on him in 2 weeks. I will discharge him on Eliquis and decrease his usual dose of ASA from FULL dose to baby dose. He is instructed to monitor for any signs of bleeding, to follow-up with his PCP within a week, and to follow with Heme-onc in 2 weeks, he verbalized understanding. - Labs Lab Results: 03/12/20 04:10 03/12/20 04:10 Abnormal Lab Results - Last 48 hrs 03/11/20 04:16: Creatinine 1.39 H, Alkaline Phosphatase 172 H 03/11/20 04:16: WBC 85.2 H*, MCH 31.2 H, Plt Count 77 L, Neutrophils % (Manual) 10 L, Band Neuts % (Manual) 3 L, Lymphocytes % (Manual) 18 L, Reactive Lymphs % 68 H, Plt Morphology Comment Appears Decreased L 03/12/20 04:10: Creatinine 1.42 H 03/12/20 04:10: WBC 86.6 H*, RBC 4.59 L, MCH 31.5 H, Plt Count 73 L, Neutrophils % (Manual) 5 L, Lymphocytes % (Manual) 92 H, Plt Morphology Comment Appears Decreased L - Physical Exam Vitals: Vital Signs (12 hours) Temp Pulse Resp BP BP Pulse Ox 03/12/20 07:49 98.7 F 58 L 16 138/78 94 L 03/12/20 04:45 97.8 F 53 L 18 140/72 96 03/11/20 20:20 97.3 F L 67 18 127/62 93 L Weight Weight 202 lb Physical Exam: The patient was seen and examined on the day of discharge. Problem - Problem (1) Pulmonary emboli Code(s): I26.99 - OTHER PULMONARY EMBOLISM WITHOUT ACUTE COR PULMONALE Status: Acute (2) CLL (chronic lymphocytic leukemia) Code(s): C91.10 - CHRONIC LYMPHOCYTIC LEUK OF B-CELL TYPE NOT ACHIEVE REMIS Status: Acute (3) Hypertension Code(s): I10 - ESSENTIAL (PRIMARY) HYPERTENSION Status: Acute (4) Thrombocytopenia Code(s): D69.6 - THROMBOCYTOPENIA, UNSPECIFIED Status: Acute (5) CAD (coronary artery disease) Code(s): I25.10 - ATHSCL HEART DISEASE OF [place] CORONARY ARTERY W/O ANG PCTRS Status: Acute - Time spent with Patient (mins): 35 Plan - Discharge Medications Prescriptions: Aspirin [Ecotrin Low Strength] 81 mg PO DAILY #30 tab Apixaban [Eliquis] 5 mg PO BID #74 tablet Home Medications: Medication Instructions Recorded Confirmed Type Omeprazole 40 mg PO HS 01/23/13 03/11/20 History Atorvastatin Calcium [Lipitor] 80 mg PO HS 08/24/16 03/11/20 History Metoprolol Tartrate [Lopressor] 12.5 mg PO BID #30 tab 08/24/16 03/11/20 Rx Apixaban [Eliquis] 5 mg PO BID #74 tablet 03/12/20 Rx Aspirin [Ecotrin Low Strength] 81 mg PO DAILY #30 tab 03/12/20 Rx Allergies: acetaminophen [From [place]] Allergy (Verified 03/11/20 15:49) hydrocodone [From [place]] Allergy (Verified 03/11/20 15:49) hydromorphone HCl [From Dilaud[place]] Allergy (Verified 10/22/19 13:15) Nausea - Discharge Instructions Activity:: Activity as Tolerated - Follow up Plan Referrals: Nikolas Corona MD [Active] - 14 Days (Please call Dr. Corona' office within 14 days to schedule a follow up appointment. ) Robby Brown MD [Primary Care Provider] - 7 Days (Please call Dr. Brown's office within 7 days to schedule a follow up appoinment. Please make sure to bring your discharge paperwork. ) Disposition: HOME Quality - Care Measures CORE MEASURES:: N/A
[2020-03-12] MEDS ORDERED: FLU VACC QS2020-21(65YR UP)/PF 240 MCG/0.7 ML SYRINGE IM ONE (16:30)
== END 2020-03-12 10:45 | disposition home or self-care (01) ==
LOC: ERS 04:03 → ERHOLD 06:59 → 2NO 14:28
PROVIDERS: ADMIT Student in an Organized Health Care Education/Training Program; ATTEND Internal Medicine
DX: I26.99 Other pulmonary embolism without acute cor pulmonale (principal); I82.443 Acute embolism and thrombosis of tibial vein, bilateral; C91.10 Chronic lymphocytic leukemia of B-cell type not having achieved remission; I10 Essential (primary) hypertension; D69.6 Thrombocytopenia, unspecified; I25.10 Atherosclerotic heart disease of native coronary artery without angina pectoris; I25.2 Old myocardial infarction; E78.5 Hyperlipidemia, unspecified; I70.0 Atherosclerosis of aorta; K21.9 Gastro-esophageal reflux disease without esophagitis; M19.90 Unspecified osteoarthritis, unspecified site; Z85.46 Personal history of malignant neoplasm of prostate; Z79.82 Long term (current) use of aspirin; Z79.899 Other long term (current) drug therapy; Z88.5 Allergy status to narcotic agent; Z88.6 Allergy status to analgesic agent; Z95.5 Presence of coronary angioplasty implant and graft; Z20.822 Contact with and (suspected) exposure to COVID-19
CPT/HCPCS: 71045; 71275; 80048; 80053; 84484; 85025 ×2; 93005; 93970; 94760; 96372; 96374; 99285; U0002; 36415; 85060; 96376; G0378; J1650; J1885; Q9967

== ENCOUNTER 2022-02-04 10:26 | Day surgery (SDC) | payer MEDICARE, BC, OTHER ==
[2022-02-03 12:27] VITALS: BMI 28.8
[~2022-02-04 10:26] MED LIST: Iopamidol 370 76% 100 ML VIAL ONE
[2022-02-04] MEDS ORDERED: Adenosine 6 MG/2 ML VIAL ONE (11:40)
[2022-02-04] MEDS ORDERED: Heparin 10,000 UNITS/ 10 ML VIAL ONE (11:40)
[2022-02-04] MEDS ORDERED: Nitroglycerin 100MG/250ML BOT 250 ML ONE (11:40)
[2022-02-04] MEDS ORDERED: Lidocaine 1% (PF) 30 ML VIAL ONE (11:40)
[2022-02-04] MEDS ORDERED: Verapamil 5 MG/2 ML VIAL ONE (11:40)
[2022-02-04] MEDS ORDERED: FENTANYL 50 MCG/ML 1 ML VIAL ONE (12:14)
[2022-02-04] MEDS ORDERED: Midazolam HCl 2 mg/2 ml Vial ONE (12:14)
== END 2022-02-04 15:35 | disposition home or self-care (01) ==
LOC: SDC 10:26
PROVIDERS: ATTEND Internal Medicine Cardiovascular Disease
PROC: 4A023N7 Measurement of Cardiac Sampling and Pressure, Left Heart, Percutaneous Approach (ICD-10-PCS; principal; 2022-02-04)
PROC: B2111ZZ Fluoroscopy of Multiple Coronary Arteries using Low Osmolar Contrast (ICD-10-PCS; 2022-02-04)
DX: I25.119 Atherosclerotic heart disease of native coronary artery with unspecified angina pectoris (principal); C91.90 Lymphoid leukemia, unspecified not having achieved remission; I25.2 Old myocardial infarction; K21.9 Gastro-esophageal reflux disease without esophagitis; E78.5 Hyperlipidemia, unspecified; I10 Essential (primary) hypertension; Z86.718 Personal history of other venous thrombosis and embolism; Z79.01 Long term (current) use of anticoagulants; Z79.899 Other long term (current) drug therapy; Z88.5 Allergy status to narcotic agent; Z88.6 Allergy status to analgesic agent; Z95.5 Presence of coronary angioplasty implant and graft
CPT/HCPCS: 93458; J3010; 99152; C1769; C1894; J0153; J1644; J2001; J2250

== ENCOUNTER 2024-11-28 10:56 | Observation (INO) | payer MEDICARE, BC, OTHER ==
[2024-11-28 11:22] LABS: #Basophils 0.06 10x3/uL (0.0-0.2); #Eosinophils 0.08 10x3/uL (0.0-0.7); #Monocytes 1.45 10x3/uL (0.11-0.59); #Neutrophils 6.51 10x3/uL (1.40-6.50); %Basophils 0.5 % (0.0-1.0); %Eosinophils 0.7 % (0.0-10.0); %Lymphocytes 30.2 % (21.0-51.0); %Monocytes 12.4 % (0.0-10.0); %Neutrophils 55.9 % (42.0-75.0); Hematocrit 45.4 % (42.0-52.0); Hemoglobin 14.6 g/dL (14.0-18.0); Mean Corpuscular Hemoglobin 28.0 pg (27.0-31.0); Mean Corpuscular Volume 87.1 fL (78.0-98.0); Platelet Count 171 10x3/uL (130-400); Red Blood Cell (RBC) Count 5.21 mill/uL (4.70-6.10); White Blood Cell (WBC) Count 11.65 10x3/uL (4.8-10.8)
[2024-11-28 11:48] LABS: ALT (SGPT) 9 U/L (Less than 45); AST (SGOT) 12 U/L (11-34); Albumin 3.5 g/dL (3.1-4.5); Alkaline Phosphatase 126 U/L (40-110); Anion Gap 12 mmol/L (10-20); BUN (Urea Nitrogen) 10 mg/dL (8.4-25.7); Bilirubin, Total 1.3 mg/dL (0.3-1.2); Calc. Creatinine Clearance 0 mL/min (70-130); Calcium 8.9 mg/dL (7.8-10.44); Carbon Dioxide 25 mmol/L (23-31); Chloride 107 mmol/L (98-107); Globulin 1.9 g/dL (2.4-3.5); Glucose 106 mg/dL (83-110); Potassium 3.5 mmol/L (3.5-5.1); Sodium 140 mmol/L (136-145)
[2024-11-28] MEDS ORDERED: Iopamidol-370 76% 500 ML MDV (1 ML CHARGE) ONE (13:55)
[2024-11-28] MEDS ORDERED: Acetaminophen 325 MG TAB PO PRN (15:39)
[2024-11-28 17:01] VITALS: BMI 28.3
[2024-11-28] MEDS: Famotidine 20 MG TAB PO SCH (20:51)
[2024-11-29 05:08] LABS: #Basophils 0.05 10x3/uL (0.0-0.2); #Eosinophils 0.09 10x3/uL (0.0-0.7); #Monocytes 1.07 10x3/uL (0.11-0.59); #Neutrophils 4.36 10x3/uL (1.40-6.50); %Basophils 0.6 % (0.0-1.0); %Eosinophils 1.1 % (0.0-10.0); %Lymphocytes 29.6 % (21.0-51.0); %Monocytes 13.5 % (0.0-10.0); %Neutrophils 54.9 % (42.0-75.0); Hematocrit 41.0 % (42.0-52.0); Hemoglobin 13.5 g/dL (14.0-18.0); Mean Corpuscular Hemoglobin 28.4 pg (27.0-31.0); Mean Corpuscular Volume 86.3 fL (78.0-98.0); Platelet Count 139 10x3/uL (130-400); Red Blood Cell (RBC) Count 4.75 mill/uL (4.70-6.10); White Blood Cell (WBC) Count 7.94 10x3/uL (4.8-10.8)
[2024-11-29] MEDS: Aspirin Chewable 81 MG TAB PO SCH (09:00)
[2024-11-29] MEDS ORDERED: PNEUMOC 20-VAL CONJ-DIP CRM/PF 0.5 ML SYRINGE IM ONE (09:00)
[2024-11-29] MEDS: Isosorbide Mononitrate 60 MG ER.TAB PO SCH (13:19)
[2024-11-29 13:34] VITALS: BP 142/75; TEMP 98.1
== END 2024-11-29 17:52 | disposition home or self-care (01) ==
LOC: ERS 10:56 → OBS 16:42
PROVIDERS: ADMIT Family Medicine; ATTEND Internal Medicine
DX: R07.89 Other chest pain (principal); R06.02 Shortness of breath; E78.5 Hyperlipidemia, unspecified; C91.10 Chronic lymphocytic leukemia of B-cell type not having achieved remission; K21.9 Gastro-esophageal reflux disease without esophagitis; Z87.09 Personal history of other diseases of the respiratory system; I25.10 Atherosclerotic heart disease of native coronary artery without angina pectoris; Z88.5 Allergy status to narcotic agent; Z79.01 Long term (current) use of anticoagulants; Z79.899 Other long term (current) drug therapy
CPT/HCPCS: 71045; 71275; 78452; 80053; 83880; 84484 ×2; 85025 ×2; 93005; 93017; 94760; 99285; A9502; J2785 ×2; Q9967; 36415; G0378